=== PATIENT | female | born 1995 | race Caucasian/White ===

== ENCOUNTER 2019-03-11 17:30 | Outpatient (CLI) | payer OTHER ==
[2019-03-11 18:34] VITALS: BP 125/63; PULSE 99; RESP 16; TEMP 98.6
[2019-03-11 19:32] LABS: Basophils % (A) 0 %; Eosinophils # (A) 0.1 k/uL (0-0.7); Eosinophils % (A) 1 %; HCT 31.7 % (34.0-46.0); HGB 10.8 gm/dL (11.4-16.0); Lymphocytes # (A) 1.6 k/uL (1.0-4.8); Lymphocytes % (A) 14 %; MCHC 34.2 g/dL (31.0-37.0); MCV 90.7 fL (80.0-100.0); Mean Platelet Volume 6.7; Monocytes # (A) 0.5 k/uL (0-1.0); Monocytes % (A) 5 %; Neutrophils # (A) 8.8 k/uL (1.3-7.7); Neutrophils % (A) 78 %; Platelet Count 252 k/uL (150-450); RBC 3.49 m/uL (3.80-5.40); RDW 12.1 % (11.5-15.5); WBC 11.3 k/uL (3.8-10.6)
[2019-03-11 19:46] LABS: ALT 23 U/L (9-52); AST 25 U/L (14-36); African American GFR (CKD) >90 (>60 ml/min/1.73 sqM); Blood Urea Nitrogen 9 mg/dL (7-17); LDH 396 U/L (313-618); Uric Acid 3.1 mg/dL (3.7-7.4)
--- NOTE | 2019-03-11 19:56 | US ---
EXAMINATION TYPE: US OB >= 14 wk fetus DATE OF EXAM: 03/11/2019 COMPARISON: None CLINICAL HISTORY: cardiac arrhythmia (PACs) cardiac arrhythmia (PACs). A2. TECHNIQUE: Transabdominal (TA) GESTATIONAL AGE / DATING Physician Established: (34 weeks/2 days) EDC: 04/20/2019 Dates by LMP: Unknown Dates by First Scan: This is first scan. (33 weeks/5 days) EDC: 04/24/2019 Dates by Current Scan: (33 weeks/5 days) EDC: 04/24/2019 SURVEY IUP: Single PLACENTA: Anterior. Appears heterogeneous. Hypoechoic area seen measurin.9 x 1.8 x 1.5 cm. PREVIA: No Previa HARJIT: 15.94 cm Normal CERVICAL LENGTH (transabdominal: norm > 3.0cm): 3.49 cm BIOMETRY PRESENTATION: Vertex LIE: Longitudinal BPD: 8.48 cm 34 weeks / 1 day HC: 30.75 cm 34 weeks / 2 days AC: 29.98 cm 34 weeks / 0 days FL: 6.61 cm 34 weeks / 0 days ESTIMATED WEIGHT IN GRAMS: 2333 grams ESTIMATED WEIGHT IN LBS/OZ: 5 lbs. 2 oz. WEIGHT PERCENTAGE BASED ON ESTABLISHED DATES: 36.5% HC/AC: 1.03 Normal FL/AC: 22.05 Normal HEART RATE: 138 bpm RHYTHM: Known arrhythmia per order. IMPRESSION: heart rate is irregular. Hypoechoic area Placenta is probably a venous mei. The ultrasound gestational age is 33 weeks and 5 days. No evidenc e of IUGR.
[2019-03-11 20:15] LABS: Appearance,Urine Clear (Clear); Bacteria,Urine Occasional /hpf; Bilirubin,Urine Negative (Negative); Blood,Urine Negative (Negative); Color,Urine Light Yellow; Glucose,Urine (UA) Negative (Negative); Ketones,Urine Negative (Negative); Leukocyte Esterase,Urine Moderate (Negative); Mucus,Urine Rare /hpf; Nitrite,Urine Negative (Negative); PH, Urine 6.5 (5.0-8.0); Protein,Urine Negative (Negative); RBC,Urine <1 /hpf (0-5); Specific Gravity,Urine 1.012 (1.001-1.035); Squamous Epithelial Cell,Urine 5 /hpf (0-4); Urobilinogen,Urine <2.0 mg/dL (<2.0); WBC,Urine 25 /hpf (0-5)
--- NOTE | 2019-03-11 21:28 | P.MSEPDOC ---
Presenting Problems - Arrival Data Date of Arrival on Unit: 03/11/19 Time of Arrival on Unit: 17:50 Mode of Transport: Portable - Complaint OB-Reason for Admission/Chief Complaint: Other Comment: pt arrived c/o dizziness lightheadness and seeing spots and upper abd discomfort and not feeling well Medical History - Information : 3 Para: 0 Term: 0 : 0 Abortions: Spontaneous or Elective: 2 Number of Living Children: 0 - Gestational Age Gestational Age by ALDAIR (wks/days): 34 Weeks and 2 Days Review of Systems - Review of Systems Constitutional: No problems Breast: No problems ENT: No problems Cardiovascular: No problems Respiratory: No problems Gastrointestinal: Diarrhea Genitourinary: No problems Musculoskeletal: No problems Neurological: Dizziness Vital Signs - Temperature Temperature: 98.6 F Temperature Source: Oral - Pulse Right Brachial Pulse Rate: 99 Pulse Assessment Method: Automatic Cuff - Respirations Respiratory Rate: 16 Oxygen Delivery Method: Room Air O2 Sat by Pulse Oximetry: 98 - Blood Pressure Right Arm Blood Pressure: 125/63 Blood Pressure Mean: 83 Blood Pressure Source: Automatic Cuff Medical Screen Scoring (Pre) - Cervical Exam Dilation: Exam Deferred Effacement: Exam Deferred Membranes: Intact - Uterine Contractions Frequency: N/A Duration: N/A Intensity: N/A - Total Score - Baby A Total Score - Baby A: 0 - Total Score - Baby B Total Score - Baby B: 0 - Total Score - Baby C Total Score - Baby C: 0 - Level of Risk - Baby A Level of Risk - Baby A: Low (0-5) - Level of Risk - Baby B Level of Risk - Baby B: Low (0-5) - Level of Risk - Baby C Level of Risk - Baby C: Low (0-5) Physician Notification (Pre) - Physician Notified Physician Notified Date: 03/11/19 Physician Notified Time: 18:05 Spoke With: dr cruz - Notification Comment Comment: dr cruz in department I agree with the RN Medical Screening Exam: Yes Risk & Benefit of care provided described in d/c instruction: Yes Diagnosis: RELATED CONDITIONS, UNSPECIFIED, THIRD TRIMESTER (Pt was seen in triage for evalution of concern of elevated blood glucose and general ill feeling. Blood pressure is normal. Pre-eclampsia labs normal. FHTs however show probable PACs, otherwise Category I. Complete ultrasound is normal. At this time there is no evidence of maternal / compromise. Patient will f/u tommorow for scheduled office visit and we will arrange MFM consult and cardiac echo. )
== END 2019-03-11 20:20 | disposition home or self-care (01) ==
LOC: FBPOP 17:30
PROVIDERS: ATTEND Obstetrics & Gynecology
DX: O26.93 Pregnancy related conditions, unspecified, third trimester (principal); Z3A.34 34 weeks gestation of pregnancy
CPT/HCPCS: 59025; 76805; 81001; 82565; 82570; 83615; 84156; 84450; 84460; 84520; 84550; 85025; 99215

== ENCOUNTER 2019-04-04 13:54 | Outpatient (CLI) | payer OTHER ==
[2019-04-04 14:36] VITALS: BP 129/80; PULSE 103; RESP 18; TEMP 97.7
--- NOTE | 2019-04-08 08:23 | P.MSEPDOC ---
Presenting Problems - Arrival Data Date of Arrival on Unit: 04/04/19 Time of Arrival on Unit: 13:54 Mode of Transport: Ambulatory - Complaint OB-Reason for Admission/Chief Complaint: Rule Out SROM Medical History - Information : 3 Para: 0 Term: 0 : 0 Abortions: Spontaneous or Elective: 2 Number of Living Children: 0 - Gestational Age Gestational Age by ALDAIR (wks/days): 37 Weeks and 5 Days Review of Systems - Review of Systems Constitutional: No problems Breast: No problems ENT: No problems Cardiovascular: No problems Respiratory: No problems Gastrointestinal: No problems Genitourinary: No problems Musculoskeletal: No problems Neurological: No problems Skin: No problems Vital Signs - Temperature Temperature: 97.7 F Temperature Source: Temporal Artery Scan - Pulse Right Pulse Rate: 103 Pulse Assessment Method: Automatic Cuff - Respirations Respiratory Rate: 18 Oxygen Delivery Method: Room Air - Blood Pressure Right Arm Blood Pressure: 129/80 Blood Pressure Mean: 96 Blood Pressure Source: Automatic Cuff Medical Screen Scoring (Pre) - Cervical Exam Dilation: 1-3 cm = 1 Effacement: Exam Deferred Membranes: Intact - Uterine Contractions Frequency: N/A Duration: N/A Intensity: N/A - Maternal Vital Signs Maternal Temperature: N/A Maternal Blood Pressure: N/A Signs of Preeclampsia: N/A Maternal Respirations: N/A - Maternal Trauma Maternal Trauma: N/A - Assessment - Baby A Baseline FHR: 135 Heart Rate - NICHD Category: Category I (Normal) = 0 NST: Reactive Position: N/A Station: N/A - Total Score - Baby A Total Score - Baby A: 1 - Total Score - Baby B Total Score - Baby B: 1 - Total Score - Baby C Total Score - Baby C: 1 - Level of Risk - Baby A Level of Risk - Baby A: Low (0-5) - Level of Risk - Baby B Level of Risk - Baby B: Low (0-5) - Level of Risk - Baby C Level of Risk - Baby C: Low (0-5) Physician Notification (Pre) - Physician Notified Physician Notified Date: 04/04/19 Physician Notified Time: 14:25 New Order Received: Yes (obtain additional amnisure and cervical exam recheck in 1hr.) Medical Screen Scoring (Post) - Cervical Exam Dilation: 1-3 cm = 1 Effacement: Exam Deferred Membranes: Intact - Uterine Contractions Frequency: N/A Duration: N/A Intensity: N/A - Maternal Vital Signs Maternal Temperature: N/A Signs of Preeclampsia: N/A Maternal Respirations: N/A - Pain Assessment Pain Location and Character: Lower, Back Pain Scale Used: Numeric (1 - 10) Pain Intensity: 6 Pain Management Goal: 0 Pain Description: *Acute, Aching Pain Radiation Location: none Pain Frequency: Frequent Pain Duration Units: Minutes Pain Behavior: Vocalization Pain Aggravating Factors: Activity, Position Non-Pharmacological Interventions: Heat, Position/Reposition - Maternal Trauma Maternal Trauma: N/A - Assessment - Baby A Heart Rate: 130 Heart Rate - NICHD Category: Category I (Normal) = 0 NST: Reactive Position: N/A Station: N/A - Total Score Total Score - Baby A: 1 Total Score - Baby B: 1 Total Score - Baby C: 1 - Post Treatment Level of Risk Post Treatment Level of Risk - Baby A: Low (0-5) Post Treatment Level of Risk - Baby B: Low (0-5) Post Treatment Level of Risk - Baby C: Low (0-5) Physician Notification (Post) - Physician Notified Physician Notified Date: 04/04/19 Physician Notified Time: 15:23 Physician/Practitioner Notified:: Gómez Spoke With: Gómez New Order Received: Yes (discharge home with instructions.) Disposition - Disposition OB Disposition: Discharge to home Discharge Date: 04/04/19 Discharge Time: 15:26 I agree with the RN Medical Screening Exam: Yes Risk & Benefit of care provided described in d/c instruction: Yes Diagnosis: FALSE LABOR AT OR AFTER 37 COMPLETED WEEKS OF GESTATION
== END 2019-04-04 15:26 | disposition home or self-care (01) ==
LOC: FBPOP 13:54
PROVIDERS: ATTEND Obstetrics & Gynecology
DX: O47.1 False labor at or after 37 completed weeks of gestation (principal); Z3A.37 37 weeks gestation of pregnancy
CPT/HCPCS: 59025; 84112; G0463; 99213

== ENCOUNTER 2019-04-16 06:00 | Inpatient (IN) | payer OTHER ==
[2019-04-16] MEDS ORDERED: LIDOCAINE 0.5% (PF) 5 MG/ML (50 ML SDV) SQ PRN (06:54)
[2019-04-16] MEDS ORDERED: TERBUTALINE 1 MG/ML VIAL SQ PRN (06:54)
[2019-04-16] MEDS ORDERED: CARBOPROST TROMETHAMINE 250 MCG/ML 1 ML AMP IM PRN (06:54)
[2019-04-16] MEDS ORDERED: METHYLERGONOVINE 0.2 MG/ML 1 ML AMP IM PRN (06:54)
[2019-04-16] MEDS ORDERED: OXYTOCIN 10 UNIT/ML 1 ML VIAL IM PRN (06:54)
[2019-04-16] MEDS: LACTATED RINGERS 1,000 ML IV SCH ×3 (07:06→15:38)
[2019-04-16 07:23] LABS: Basophils # (A) 0.1 k/uL (0-0.2); Basophils % (A) 0 %; Eosinophils # (A) 0.3 k/uL (0-0.7); Eosinophils % (A) 3 %; HCT 35.1 % (34.0-46.0); HGB 11.8 gm/dL (11.4-16.0); Lymphocytes # (A) 2.1 k/uL (1.0-4.8); Lymphocytes % (A) 17 %; MCH 29.2 pg (25.0-35.0); MCHC 33.7 g/dL (31.0-37.0); MCV 86.7 fL (80.0-100.0); Mean Platelet Volume 7.2; Monocytes # (A) 0.6 k/uL (0-1.0); Monocytes % (A) 5 %; Neutrophils # (A) 9.2 k/uL (1.3-7.7); Neutrophils % (A) 74 %; Platelet Count 267 k/uL (150-450); RBC 4.04 m/uL (3.80-5.40); RDW 12.9 % (11.5-15.5); WBC 12.5 k/uL (3.8-10.6)
[2019-04-16] MEDS: OXYTOCIN 30 UNITS/500 ML NS 30 UNIT in SALINE 1 500ML.BAG IV SCH (08:00)
--- NOTE | 2019-04-16 08:44 | P.HPOB ---
History of Present Illness H&P Date: 04/16/19 Chief Complaint: Intrauterine at term: Induction of labor: Fetus with PACs Brenda is a 23-year-old at 39 weeks gestation who had an unremarkable until approximately 34 weeks when PACs were noted on her evaluation. She was sent to maternal medicine and was evaluated from their standpoint and has been closely monitored through the remainder of the . She had nonstress tests and biophysical profiles. Overall this time she is doing well and a category 1 tracing with some PACs is noted. Nursery personnel and ground intelligence officer are already aware. Pertinent labs include A+ blood type with an Rh antibody screening was negative, rubella is immune, hepatitis B surface antigen and group B strep are also negative as is HIV. She was dilated to 2-2 cm 90% effaced -2 station. Artificial rupture membranes was performed and clear fluid is noted. Past Medical History Past Medical History: No Reported History History of Any Multi-Drug Resistant Organisms: None Reported Additional Past Surgical History / Comment(s): lithotripsy, tubes in ears Past Anesthesia/Blood Transfusion Reactions: No Reported Reaction Past Psychological History: No Psychological Hx Reported Smoking Status: Former smoker Past Alcohol Use History: None Reported Past Drug Use History: None Reported - Past Family History Father Family Medical History: No Reported History Medications and Allergies Home Medications Medication Instructions Recorded Confirmed Type Pnv,Calcium 72/Iron/Folic Acid 1 each PO DAILY 03/11/19 04/16/19 History [ Plus Tablet] Allergies Allergy/AdvReac Type Severity Reaction Status Date / Time No Known Allergies Allergy Verified 04/16/19 06:53 Exam Osteopathic Statement: *. No significant issues noted on an osteopathic str uctural exam other than those noted in the History and Physical/Consult. Vital Signs Temp Pulse Resp BP Pulse Ox 04/16/19 07:11 97.6 F 94 18 128/80 99 Intake and Output 04/15/19 04/16/19 04/16/19 22:59 06:59 14:59 Other: Weight 65.317 kg 65.317 kg - OBG Physical Exam Breast: both: normal (no masses) Abdomen: bowel sounds normal, no diffuse tenderness, no bruit present, no guarding noted, no hepatomegaly, no splenomegaly, no mass Vulva: both: normal Vagina: normal moisture, no discharge Cervix: no lesion, no discharge Uterus: normal size, normal contour Adnexa: both: normal Anus/Rectum: normal perianal skin, no rectal mass, no hemorrhoids, heme negative Results Result Diagrams: 04/16/19 07:05 Abnormal Lab Results - Last 24 Hours (Table) 04/16/19 Range/Units 07:05 WBC 12.5 H (3.8-10.6) k/uL Neutrophils # 9.2 H (1.3-7.7) k/uL
[2019-04-16] MEDS ORDERED: SODIUM CHLORIDE 0.9% 100 ML BAG ONE (11:40)
[2019-04-16] MEDS ORDERED: ROPIVACAINE 5MG/ML 20ML VIAL ONE (11:40)
[2019-04-16] MEDS ORDERED: fentaNYL (PF) 50 MCG/ML 5 ML AMP ONE (11:40)
[2019-04-16] MEDS ORDERED: CITRIC ACID-SODIUM CITRATE 15 ML CUP PO ONE (21:43)
[2019-04-16] MEDS ORDERED: ONDANSETRON 4 MG/2 ML VIAL ONE (21:52)
[2019-04-16] MEDS ORDERED: ceFAZolin 1,000 MG VIAL ONE (21:52)
[2019-04-16] MEDS ORDERED: KETOROLAC 30 MG/ML 1 ML VIAL ONE (21:52)
[2019-04-16] MEDS ORDERED: DEXAMETHASONE SOD PHOS (MDV) 100 MG/10 ML VIAL ONE (21:52)
[2019-04-16] MEDS ORDERED: LACTATED RINGERS 1,000 ML BAG IV ONE (21:52)
[2019-04-16] MEDS ORDERED: MORPHINE SULFATE (PF) 0.3 MG/0.3 ML SYR ONE (21:52)
[2019-04-16] MEDS ORDERED: OXYTOCIN 10 UNIT/ML 1 ML VIAL ONE (21:52)
[2019-04-16] MEDS ORDERED: HYDROmorphone (PF) 1 MG/ML ONE (21:52)
[2019-04-16] MEDS ORDERED: ONDANSETRON 4 MG/2 ML VIAL IVP PRN (22:42)
[2019-04-16] MEDS ORDERED: ACETAMINOPHEN TAB 325 MG TAB PO PRN (22:42)
[2019-04-16] MEDS ORDERED: METOCLOPRAMIDE 5 MG/ML 2 ML VIAL IVP PRN (22:42)
[2019-04-16] MEDS ORDERED: diphenhydrAMINE 50 MG CAP PO PRN (22:42)
[2019-04-16] MEDS ORDERED: ZOLPIDEM 5 MG TAB PO PRN (22:42)
[2019-04-16] MEDS ORDERED: diphenhydrAMINE 25 MG CAP PO PRN (22:42)
[2019-04-16] MEDS ORDERED: NALOXONE 0.4 MG/ML 1 ML VIAL IV PRN (22:42)
[2019-04-16] MEDS ORDERED: SIMETHICONE 80 MG CHEWABLE PO PRN (22:42)
[2019-04-16] MEDS ORDERED: diphenhydrAMINE 50 MG/ML 1 ML VIAL IVP PRN ×2 (22:42)
--- NOTE | 2019-04-16 22:48 | P.OP ---
Date of Procedure: 04/16/19 Preoperative Diagnosis: Intrauterine at term: Failure to progress: Category 2 tracing Postoperative Diagnosis: Same with left occiput transverse position with omental adhesions along the majority of the posterior uterine wall and bilateral fallopian tubes and ovaries Procedure(s) Performed: Primary low transverse section with lysis of adhesions Anesthesia: epidural Surgeon: Geraldo Magaña [employer]: Nisreen Mann Estimated Blood Loss (ml): 500 IV fluids (ml): 600 Urine output (ml): 300 Pathology: none sent Condition: stable Disposition: floor Operative Findings: Female 's of 9 and 9 at one and 5 minutes Watkins weight was 6 lbs. 8 oz. Baby was left occiput transverse position at delivery. Significant adhesions of the omentum to the posterior uterine wall as well as bilateral fallopian tubes and ovaries Description of Procedure: Brenda was taken to the operating suite where a epidural anesthetic was found be adequate. She was prepped and draped in the normal sterile fashion and placed in dorsal supine position with leftward tilt. Initially a Pfannenstiel skin incision was made and this incision was then carried through to the underlying layer of fascia with Bovie cautery. Fascia was nicked in the midline and this opening was extended laterally with Miller scissors. Superior and inferior aspect of this incision were then grasped tented up and bluntly and sharply dissected off the rectus muscles. Rectus muscles were then divided in the midline and blunt dissection the peritoneum was made. This opening was then extended superiorly and inferiorly with good visualization of both bowel bladder. Bladder blade was then placed and bladder flap identified. It was entered with Metzenbaum scissors carried across face uterus and only dissected down. Knife was then used to incise uterus and this opening was fully developed with hemostat. Incision was then bluntly extended and head was atraumatically delivered. Anterior posterior shoulders were then delivered without difficulty followed by the remainder the baby. Umbilical cord was then clamped cut usual fashion and was sent for gases due to category 2 tracing. Once baby was delivered nursery personnel was present and assumed care. Placenta was then delivered intact and Pitocin was added to the IV. Uterus this point was attempted to be exteriorized however's omental adhesions were noted across the vast majority posterior aspect of the uterus these were sharply dissected free with Bovie cautery. Once they were dissected down enough uterus was fully exte riorized cleared of clots and debris and closed in 2 layers with 0 Vicryl suture. Once excellent hemostasis was obtained the remaining adhesions were dissected free from the posterior uterus as well as the fallopian tube and paratubal paraovarian spaces on both the right and left side. She's had no prior surgeries so it is difficult to say if this was an old infection versus endometriosis. No other endometrial implants were noted during the surgery. Once completed blood and debris was suctioned from the posterior cul-de-sac and a piece of Interceed was placed on the posterior uterine wall and uterus was reinserted into the abdomen. Reinspection of the uterine incision was done there was small hematoma in the right side was not expanding the remainder of the incision was intact and no bleeding is noted. Therefore peritoneum was identified and delineated with hemostats and closed with 3-0 Vicryl. Fascial layer was then closed with 0 Vicryl suture. One layer of 3-0 Vicryl was used to reapproximate the space in the deep subcuticular tissues. Skin was then closed with 3-0 Vicryl subcuticular. Sponge, lap, needle counts all correct 2. Patient was then taken to the recovery room in stable and satisfactory condition.
[2019-04-17] MEDS: LACTATED RINGERS 1,000 ML IV SCH ×4 (01:54→20:37)
[2019-04-17 07:05] LABS: Basophils % (A) 0 %; Eosinophils % (A) 0 %; HCT 29.1 % (34.0-46.0); Lymphocytes # (A) 0.9 k/uL (1.0-4.8); Lymphocytes % (A) 4 %; MCH 29.5 pg (25.0-35.0); MCHC 33.7 g/dL (31.0-37.0); MCV 87.4 fL (80.0-100.0); Mean Platelet Volume 9.1; Monocytes # (A) 0.5 k/uL (0-1.0); Monocytes % (A) 2 %; Neutrophils # (A) 21.9 k/uL (1.3-7.7); Neutrophils % (A) 93 %; Platelet Count 267 k/uL (150-450); RBC 3.33 m/uL (3.80-5.40); RDW 12.9 % (11.5-15.5); WBC 23.5 k/uL (3.8-10.6)
[2019-04-17 07:13] LABS: HGB 9.8 gm/dL (11.4-16.0)
[2019-04-17] MEDS: IBUPROFEN 600 MG TAB PO PRN (08:00)
[2019-04-17] MEDS: SENNOSIDES-DOCUSATE SODIUM 1 EACH TAB PO SCH ×2 (08:01→20:37)
--- NOTE | 2019-04-17 08:23 | P.PNOBGPC ---
Subjective - Subjective Principal diagnosis: Postop day 1 Interval history: Brenda is doing very well postop day 1. She is involuting, voiding and tolerating her diet. She voices no complaints. Vital signs are stable and she is afebrile. We'll plan to advance diet today and increase ambulation Patient reports: Reports appetite normal, Reports voiding normally, Reports pain well controlled, Reports ambulating normally [place]: doing well Objective - Vital Signs Latest vital signs: Vital Signs Temp Pulse Resp BP Pulse Ox 04/17/19 01:35 98.9 F 75 16 118/62 04/17/19 01:05 98.9 F 75 18 120/60 04/17/19 00:35 83 18 126/65 04/17/19 00:05 98.6 F 82 16 120/58 04/16/19 23:35 89 18 127/62 04/16/19 23:20 98.4 F 83 18 136/65 97 04/16/19 23:03 94 16 131/68 97 04/16/19 22:50 98.6 F 82 18 132/64 96 Intake and Output 04/16/19 04/17/19 04/17/19 22:59 06:59 14:59 Intake Total 150 Balance 150 Intake: Oral 150 - Exam Lungs: bilateral: normal Chest: Normal S1, Normal S2 Extremities: Present: normal Abdomen: Present: normal appearance, soft. Absent: distention, tenderness Incision: Present: normal, dry, intact Uterus: Present: normal, firm - Labs Labs: Abnormal Lab Results - Last 24 Hours (Table) 04/17/19 Range/Units 06:41 WBC 23.5 H (3.8-10.6) k/uL RBC 3.33 L (3.80-5.40) m/uL Hgb 9.8 L D (11.4-16.0) gm/dL Hct 29.1 L (34.0-46.0) % Neutrophils # 21.9 H (1.3-7.7) k/uL Lymphocytes # 0.9 L (1.0-4.8) k/uL
[2019-04-17] MEDS ORDERED: CELLULOSE,OXIDIZED 1 EACH EACH MISCELLANE ONE (11:31)
[2019-04-17] MEDS: HYDROcodone/APAP 7.5-325MG 1 EACH TAB PO PRN ×2 (12:52→22:05)
[2019-04-17] MEDS: KETOROLAC 30 MG/ML 1 ML VIAL IVP PRN ×2 (14:05→20:03)
[2019-04-17] MEDS: OXYTOCIN 30 UNITS/500 ML NS 30 UNIT in SALINE 1 500ML.BAG IV SCH (20:36)
[2019-04-18] MEDS: KETOROLAC 30 MG/ML 1 ML VIAL IVP PRN (04:02)
--- NOTE | 2019-04-18 06:24 | P.PNOBGPC ---
Subjective - Subjective Patient reports: Reports appetite normal, Reports voiding normally, Reports pain well controlled, Reports ambulating normally : doing well Objective - Vital Signs Latest vital signs: Vital Signs Temp Pulse Resp BP Pulse Ox 04/17/19 23:56 98.9 F 82 16 106/49 98 04/17/19 20:00 98.6 F 88 16 119/64 98 Intake and Output 04/17/19 04/17/19 04/18/19 14:59 22:59 06:59 Output Total 300 Balance -300 Output: Urine 300 Other: # Voids 1 - Exam Lungs: bilateral: normal Chest: Normal S1, Normal S2 Extremities: Present: normal Abdomen: Present: normal appearance, soft. Absent: distention, tenderness Incision: Present: normal, dry, intact Uterus: Present: normal, firm - Labs Labs: Abnormal Lab Results - Last 24 Hours (Table) 04/17/19 Range/Units 06:41 WBC 23.5 H (3.8-10.6) k/uL RBC 3.33 L (3.80-5.40) m/uL Hgb 9.8 L D (11.4-16.0) gm/dL Hct 29.1 L (34.0-46.0) % Neutrophils # 21.9 H (1.3-7.7) k/uL Lymphocytes # 0.9 L (1.0-4.8) k/uL Assessment and Plan Assessment: Postoperative day #2. Patient is resting without new complaints. Vital signs are stable she is afebrile, her incision is intact and dry. She did have an elevated white count yesterday to 25.5 so therefore I'm going to repeat her CBC today. Patient is no evidence of infection I feel this is most likely due to her long labor and section. Patient is tolerating regular diet and urinating without difficulty. Plan today is to continue routine postoperative care and check a CBC. (1) delivery delivered Current Visit: Yes Status: Acute Code(s): O82 - ENCOUNTER FOR DELIVERY WITHOUT INDICATION SNOMED Code(s): 722203182
[2019-04-18] MEDS: HYDROcodone/APAP 7.5-325MG 1 EACH TAB PO PRN ×3 (06:30→20:38)
[2019-04-18 07:07] LABS: Basophils % (A) 0 %; Eosinophils # (A) 0.2 k/uL (0-0.7); Eosinophils % (A) 1 %; HCT 24.8 % (34.0-46.0); Lymphocytes # (A) 1.7 k/uL (1.0-4.8); Lymphocytes % (A) 14 %; MCH 29.6 pg (25.0-35.0); MCHC 33.5 g/dL (31.0-37.0); MCV 88.2 fL (80.0-100.0); Mean Platelet Volume 8.3; Monocytes # (A) 0.6 k/uL (0-1.0); Monocytes % (A) 5 %; Neutrophils # (A) 9.7 k/uL (1.3-7.7); Neutrophils % (A) 78 %; Platelet Count 214 k/uL (150-450); RBC 2.81 m/uL (3.80-5.40); RDW 13.4 % (11.5-15.5); WBC 12.4 k/uL (3.8-10.6)
[2019-04-18 07:16] LABS: HGB 8.3 gm/dL (11.4-16.0)
[2019-04-18] MEDS: IBUPROFEN 600 MG TAB PO PRN ×3 (10:41→23:32)
[2019-04-18] MEDS: SENNOSIDES-DOCUSATE SODIUM 1 EACH TAB PO SCH ×3 (10:42→19:38)
[2019-04-19] MEDS: HYDROcodone/APAP 7.5-325MG 1 EACH TAB PO PRN ×2 (02:31→08:23)
[2019-04-19] MEDS: IBUPROFEN 600 MG TAB PO PRN (05:27)
--- NOTE | 2019-04-19 07:08 | P.PNOBGPC ---
Subjective - Subjective Patient reports: Reports appetite normal, Reports voiding normally, Reports pain well controlled, Reports ambulating normally : doing well Objective - Vital Signs Latest vital signs: Vital Signs Temp Pulse Resp BP Pulse Ox 04/18/19 23:55 98.1 F 87 16 127/76 97 - Exam Lungs: bilateral: normal Chest: Normal S1, Normal S2 Extremities: Present: normal Abdomen: Present: normal appearance, soft. Absent: distention, tenderness Incision: Present: normal, dry, intact Uterus: Present: normal, firm - Labs Labs: Abnormal Lab Results - Last 24 Hours (Table) 04/18/19 Range/Units 06:40 WBC 12.4 H (3.8-10.6) k/uL RBC 2.81 L (3.80-5.40) m/uL Hgb 8.3 L D (11.4-16.0) gm/dL Hct 24.8 L (34.0-46.0) % Neutrophils # 9.7 H (1.3-7.7) k/uL Assessment and Plan Assessment: Postoperative day #3. This patient is resting without new complaints. Vital signs are stable and she is afebrile. Uterus is firm nontender and her incision is intact and dry. CBC yesterday showed her white count come down markedly there is no evidence of infection. Plan today is to continue routine postoperative care discharge home later today. (1) delivery delivered Current Visit: Yes Status: Acute Code(s): O82 - ENCOUNTER FOR DELIVERY WITHOUT INDICATION SNOMED Code(s): 485154390
--- NOTE | 2019-04-19 07:15 | P.DS ---
Providers Date of admission: 04/16/19 06:30 Expected date of discharge: 04/19/19 Attending physician: Geraldo Magaña Primary care physician: Stated None - Discharge Diagnosis(es) (1) delivery delivered Current Visit: Yes Status: Acute Hospital Course: Please see dictated H&P for intimate details by Dr. Magaña on this patient's admission. Brief summary this is a pleasant 23-year-old 3 para 0 female 39-1/2 weeks gestation who is admitted to labor and delivery for induction of labor subsequent goes on to have a primary section for a viable female infant. Please see dictated delivery/operative note. Postoperatively the patient did have an elevated white count postoperative day 1 but a repeat CBC showed this went down to normal. There is no evidence of infection. Patient continues to well was felt be stable for discharge home on postoperative [address] Magaña in 1 week. Procedures: Induction of labor and primary low transverse section Patient Condition at Discharge: Good Plan - Discharge Summary New Discharge Prescriptions: New Ibuprofen [Motrin] 600 mg PO Q6HR PRN #30 tab PRN Reason: Mild Pain Or Fever >= 100.5 HYDROcodone/APAP 7.5-325MG [[place] 7.5-325] 1 each PO Q6H PRN #12 tab PRN Reason: Severe Pain No Action Pnv,Calcium 72/Iron/Folic Acid [ Plus Tablet] 1 each PO DAILY Discharge Medication List Pnv,Calcium 72/Iron/Folic Acid [ Plus Tablet] 1 each PO DAILY 03/11/19 [History] HYDROcodone/APAP 7.5-325MG [[place] 7.5-325] 1 each PO Q6H PRN #12 tab 04/19/19 [Rx] Ibuprofen [Motrin] 600 mg PO Q6HR PRN #30 tab 04/19/19 [Rx] Follow up Appointment(s)/Referral(s): Geraldo Magaña, [Doctor of Osteopathic Medicine] - 04/27/19 2:30 pm (Please see Dr. Magaña on May 29 at 2:15 PM for a check as well.) Patient Instructions/Handouts: (DC) Activity/Diet/Wound Care/Special Instructions: No heavy lifting or strenuous activities for 6 weeks[address] No driving. No intercourse or anything per vagina for 6 weeks. Please call if any fever, chills, excessive vaginal bleeding, and/or abdominal pain. Discharge Disposition: HOME SELF-CARE
[2019-04-19] MEDS: SENNOSIDES-DOCUSATE SODIUM 1 EACH TAB PO SCH (08:23)
[2019-04-19 08:37] VITALS: BP 111/74; PULSE 80; RESP 18; TEMP 98.3
== END 2019-04-19 10:50 | disposition home or self-care (01) | DRG 788 ==
LOC: 4FBP 06:30
PROVIDERS: ADMIT Obstetrics & Gynecology; ATTEND Obstetrics & Gynecology
PROC: 0DNV0ZZ Release Mesentery, Open Approach (ICD-10-PCS; 2019-04-16)
PROC: 3E033VJ Introduction of Other Hormone into Peripheral Vein, Percutaneous Approach (ICD-10-PCS; 2019-04-16)
PROC: 10907ZC Drainage of Amniotic Fluid, Therapeutic from Products of Conception, Via Natural or Artificial Opening (ICD-10-PCS; 2019-04-16)
PROC: 00HU33Z Insertion of Infusion Device into Spinal Canal, Percutaneous Approach (ICD-10-PCS; 2019-04-16)
PROC: 3E0R3BZ Introduction of Anesthetic Agent into Spinal Canal, Percutaneous Approach (ICD-10-PCS; 2019-04-16)
PROC: 10D00Z1 Extraction of Products of Conception, Low, Open Approach (ICD-10-PCS; principal; 2019-04-16 21:50)
DX: O76 Abnormality in fetal heart rate and rhythm complicating labor and delivery (principal); O99.89 Other specified diseases and conditions complicating pregnancy, childbirth and the puerperium; N73.6 Female pelvic peritoneal adhesions (postinfective); O62.2 Other uterine inertia; Z37.0 Single live birth; Z3A.39 39 weeks gestation of pregnancy; Z87.891 Personal history of nicotine dependence; Z79.899 Other long term (current) drug therapy; Z98.890 Other specified postprocedural states
CPT/HCPCS: 85025; 86850; 86900; 86901

== ENCOUNTER → 2020-04-19 | Outpatient (CLI) | payer OTHER ==
--- NOTE | 2020-04-19 16:00 | US ---
EXAMINATION TYPE: US OB anatomy transabd DATE OF EXAM: 04/19/2020 COMPARISON: NONE HISTORY: Z34.92 Encounter for supervision of normal pregnan Anatomy TECHNIQUE: Transabdominal (TA) EXAM MEASUREMENTS: GESTATIONAL AGE / DATING Physician Established: (19 weeks/1 days) EDC: 09/12/2020 Dates by Current Scan for: (18 weeks/4 days) EDC: 09/16/2020 SURVEY IUP: Single PLACENTA: Posterior PREVIA: No previa HARJIT: 10.0 cm Normal CERVICAL LENGTH (transabdominal: norm > 3.0cm): 3.3 cm BIOMETRY PRESENTATION: Vertex BPD: 4.2 cm 18 weeks / 5 days HC: 15.9 cm 18 weeks / 5 days AC: 13.3 cm 18 weeks / 5 days FL: 2.9 cm 18 weeks / 5 days ESTIMATED WEIGHT IN GRAMS: 256.4 grams ESTIMATED WEIGHT IN LBS/OZ: 0 lbs. 9 oz. WEIGHT PERCENTAGE BASED ON ESTABLISHED DATE: 25% % HC/AC: 1.2 Normal FL/AC: 21.5 HEART RATE: 150 bpm RHYTHM: Normal ANATOMY SEEN (within normal limits): * Lateral Vent (< 1 cm) 0.4 cm * Cisterna Magna (< 1.1 cm) 0.4 cm * Nuchal Fold (< 0.6 cm) 0.3 cm * Cerebellum (varies with age) 1.9 cm Choroid Plexus (bilateral) Midline Falx Cavus Septi Pellucidi Four Chamber Heart Outflow tracts: LVOT/RVOT Stomach Situs Nose / Lips Diaphragm Kidneys (bilateral) Bladder Cord Insert Three Vessel Cord Longitudinal Spine Transverse Spine Arms (bilateral) Legs (bilateral) Feet (bilateral) Hands (bilateral) Single live IUP measuring 18 weeks 4 days. IMPRESSION: 1. Single intrauterine gestation estimated at 18 weeks 4 days gestation based on current ultrasound m easurements. Cardiac activity measures 1 50 bpm was observed during the study.
== END | disposition home or self-care (01) ==
LOC: RADUSWWP 12:07
PROVIDERS: ATTEND Obstetrics & Gynecology
DX: Z34.92 Encounter for supervision of normal pregnancy, unspecified, second trimester (principal); Z3A.18 18 weeks gestation of pregnancy
CPT/HCPCS: 76811

== ENCOUNTER 2020-07-14 10:40 | Outpatient (CLI) | payer OTHER ==
[2020-07-14 11:42] VITALS: BP 137/75; PULSE 80; RESP 16; TEMP 97.7
--- NOTE | 2020-07-16 08:17 | P.MSEPDOC ---
Presenting Problems - Arrival Data Date of Arrival on Unit: 07/14/20 Time of Arrival on Unit: 10:40 Mode of Transport: Ambulatory - Complaint OB-Reason for Admission/Chief Complaint: Possible Onset of Labor Comment: contractions from 299 to 429 Medical History - Information : 4 Para: 1 Term: 1 : 0 Abortions: Spontaneous or Elective: 2 Number of Living Children: 1 - Gestational Age Gestational Age by ALDAIR (wks/days): 31 Weeks and 3 Days - History Complications: Prior Review of Systems - Review of Systems Constitutional: No problems Breast: No problems ENT: No problems Cardiovascular: No problems Respiratory: No problems Gastrointestinal: No problems Genitourinary: No problems Musculoskeletal: No problems Neurological: No problems Skin: No problems Vital Signs - Temperature Temperature: 97.7 F Temperature Source: Temporal Artery Scan - Pulse Right Brachial Pulse Rate: 80 Pulse Assessment Method: Automatic Cuff - Respirations Respiratory Rate: 16 Oxygen Delivery Method: Room Air O2 Sat by Pulse Oximetry: 98 - Blood Pressure Right Arm Sitting Blood Pressure: 137/75 Blood Pressure Mean: 95 Blood Pressure Source: Automatic Cuff Medical Screen Scoring (Pre) - Cervical Exam Dilation: 0 cm = 0 Membranes: Intact - Uterine Contractions Frequency: > 5 minutes apart = 1 Duration: > 40 seconds = 2 - Maternal Vital Signs Maternal Temperature: N/A Maternal Blood Pressure: N/A Signs of Preeclampsia: N/A Maternal Respirations: N/A - Maternal Trauma Maternal Trauma: N/A - Assessment - Baby A Baseline FHR: 130 Heart Rate - NICHD Category: Category I (Normal) = 0 NST: Reactive Position: N/A Station: N/A - Total Score - Baby A Total Score - Baby A: 3 - Total Score - Baby B Total Score - Baby B: 3 - Total Score - Baby C Total Score - Baby C: 3 - Level of Risk - Baby A Level of Risk - Baby A: Low (0-5) - Level of Risk - Baby B Level of Risk - Baby B: Low (0-5) - Level of Risk - Baby C Level of Risk - Baby C: Low (0-5) Physician Notification (Pre) - Physician Notified Physician Notified Date: 07/14/20 Physician Notified Time: 11:15 New Order Received: Yes (dc home) Disposition - Disposition OB Disposition: Triage, Discharge to home, Written follow up instructions reviewed Discharge Date: 07/14/20 Discharge Time: 11:20 I agree with the RN Medical Screening Exam: Yes Case reviewed; plan agreed upon as documented in EMR&OBIX.: Yes Diagnosis: FALSE LABOR BEFORE 37 COMPLETED WEEKS OF GEST, THIRD TRI
== END 2020-07-14 11:20 | disposition home or self-care (01) ==
LOC: FBPOP 10:40
PROVIDERS: ATTEND Obstetrics & Gynecology
DX: O47.03 False labor before 37 completed weeks of gestation, third trimester (principal); Z3A.31 31 weeks gestation of pregnancy
CPT/HCPCS: 59025; G0463; 99213

== ENCOUNTER 2020-09-09 05:48 | Inpatient (IN) | payer OTHER ==
[2020-09-07 14:26] VITALS: BMI 25.7
--- NOTE | 2020-09-08 12:48 | P.HPOB ---
History of Present Illness H&P Date: 09/08/20 Chief Complaint: Repeat and permanent sterilization This patient is a pleasant 25-year-old 4 para 1 female estimated date of confinement 09/12/2020 estimated gestational age 39-4/7 weeks who presents to labor and delivery requesting repeat section and also requesting tubal ligation for permanent sterilization. Patient's history is such that she had a previous section for failure to progress and request repeat . Patient is also talk to me on multiple occasions throughout her that she is done having shoulder and wants something permanent done. Therefore she presents for tubal ligation as well. has been uncomplicated. Review of Systems Genitourinary: Reports Menstruation: Reports amenorrhea Past Medical History Past Medical History: No Reported History History of Any Multi-Drug Resistant Organisms: None Reported Past Surgical History: Section, Ear Surgery Additional Past Surgical History / Comment(s): lithotripsy, tubes in ears Past Anesthesia/Blood Transfusion Reactions: No Reported Reaction Smoking Status: Former smoker Past Alcohol Use History: None Reported Past Drug Use History: None Reported - Past Family History Father Family Medical History: No Reported History Medications and Allergies Home Medications Medication Instructions Recorded Confirmed Type Pnv,Calcium 72/Iron/Folic Acid 1 each PO DAILY 03/11/19 09/07/20 History [ Plus Tablet] Allergies Allergy/AdvReac Type Severity Reaction Status Date / Time No Known Allergies Allergy Verified 09/07/20 14:22 Exam - OBG Physical Exam Abdomen: bowel sounds normal, no diffuse tenderness, no bruit present, no guarding noted, no hepatomegaly, no splenomegaly, no mass Vulva: both: normal Vagina: normal moisture, no discharge Cervix: no lesion, no discharge Uterus: enlarged (Fundal height is 37 cm) Results blood work shows she is A positive, rubella immune, RPR is nonreactive, hepatitis B is negative, Glucola was normal, group B strep was negative, growth ultrasounds anatomy ultrasounds were normal. Assessment and Plan Assessment: This is a pleasant 25-year-old 4 para 1 female 39-4/7 weeks gestation who is admitted to labor and delivery for requested repeat section and also requesting permanent sterilization. Plan is repeat low transverse section and bilateral partial salpingectomy. I have had multiple discussions with Brenda in regards to the fact that a tubal ligation is considered permanent, however there is a failure rate of less than 5 per thousand procedures done. She understands that surgery itself and apparently has risks including risks of infection, bleeding, possible injury to bowel, bladder, vessels, and/or other organs. All the patient's questions are answered written consent is obtained (1) 39 weeks gestation of Status: Acute Code(s): Z3A.39 - 39 WEEKS GESTATION OF SNOMED Code(s): 57206437 (2) Previous delivery affecting Status: Acute Code(s): O34.219 - MATERNAL CARE FOR UNSP TYPE SCAR FROM PREVIOUS DEL SNOMED Code(s): 306454498 (3) Family planning Status: Acute Code(s): Z30.09 - ENCOUNTER FOR OTH GENERAL CNSL AND ADVICE ON CONTRACEPTION SNOMED Code(s): 736054660
[2020-09-09] MEDS ORDERED: CITRIC ACID-SODIUM CITRATE 15 ML CUP PO ONE (06:07)
[2020-09-09] MEDS ORDERED: LACTATED RINGERS 1,000 ML IV ONE (06:07)
[2020-09-09] MEDS: LACTATED RINGERS 1,000 ML IV SCH ×2 (06:20→19:57)
[2020-09-09 06:31] LABS: Basophils % (A) 0 %; Eosinophils # (A) 0.2 k/uL (0-0.7); Eosinophils % (A) 2 %; HCT 32.7 % (34.0-46.0); HGB 11.4 gm/dL (11.4-16.0); Lymphocytes # (A) 2.4 k/uL (1.0-4.8); Lymphocytes % (A) 23 %; MCH 30.1 pg (25.0-35.0); MCHC 34.8 g/dL (31.0-37.0); MCV 86.5 fL (80.0-100.0); Mean Platelet Volume 9.4; Monocytes # (A) 0.5 k/uL (0-1.0); Monocytes % (A) 5 %; Neutrophils % (A) 69 %; Platelet Count 234 k/uL (150-450); RBC 3.78 m/uL (3.80-5.40); RDW 13.1 % (11.5-15.5); WBC 10.2 k/uL (3.8-10.6)
[2020-09-09] MEDS ORDERED: ONDANSETRON 4 MG/2 ML VIAL ONE (07:56)
[2020-09-09] MEDS ORDERED: KETOROLAC 15 MG/ML 1 ML VIAL ONE (07:56)
[2020-09-09] MEDS ORDERED: OXYTOCIN 10 UNIT/ML 1 ML VIAL ONE (07:56)
[2020-09-09] MEDS ORDERED: NALBUPHINE 10 MG/ML (1 ML AMP) ONE (07:56)
[2020-09-09] MEDS ORDERED: MORPHINE SULFATE (PF) 0.3 MG/0.3 ML SYR ONE (07:56)
[2020-09-09] MEDS ORDERED: NALOXONE 0.4 MG/ML 1 ML VIAL IV PRN (08:22)
[2020-09-09] MEDS ORDERED: diphenhydrAMINE 50 MG/ML 1 ML VIAL IVP PRN ×2 (08:22→08:48)
[2020-09-09] MEDS ORDERED: MORPHINE SULFATE 2 MG/ML SYRINGE IVP PRN (08:22)
[2020-09-09] MEDS ORDERED: ONDANSETRON 4 MG/2 ML VIAL IVP PRN (08:22)
[2020-09-09] MEDS ORDERED: SIMETHICONE 80 MG CHEWABLE PO PRN (08:48)
[2020-09-09] MEDS ORDERED: diphenhydrAMINE 25 MG CAP PO PRN (08:48)
[2020-09-09] MEDS ORDERED: METOCLOPRAMIDE 5 MG/ML 2 ML VIAL IVP PRN (08:48)
[2020-09-09] MEDS ORDERED: LANOLIN CREAM 5 GM TUBE TOPICAL PRN (08:48)
[2020-09-09] MEDS ORDERED: ZOLPIDEM 5 MG TAB PO PRN (08:48)
[2020-09-09] MEDS ORDERED: OXYTOCIN 30 UNITS/500 ML NS 30 UNIT in SALINE 1 500ML.BAG IV SCH (09:00)
--- NOTE | 2020-09-09 09:00 | P.OP ---
Date of Procedure: 09/09/20 Preoperative Diagnosis: #1: 39-4/7 weeks intrauterine . #2: Previous section desires repeat. #3: Multi parity desires permanent sterilization Postoperative Diagnosis: Same Procedure(s) Performed: Repeat low transverse section and bilateral partial salpingectomy. Anesthesia: spinal Surgeon: Booker Watt Account Group Supervisor #1: Geraldo Magaña Estimated Blood Loss (ml): 600 Pathology: other (Bilateral fallopian tube segments) Condition: stable Disposition: floor Indications for Procedure: Please see dictated H&P for intimate details of this patient's admission. Brief summary this is a pleasant 25-year-old 4 para 1 female estimated gestational age 39-4/7 weeks who presents for elective repeat section and also requesting permanent sterilization. Patient and I have discussed the fact that a tubal ligation is permanent however there is a failure rate of less than 5 per thousand procedures done. Patient also understands surgery itself has risks and risks of infection, bleeding, possible injury bowel, bladder, vessels, and/or other organs. All the patient's questions are answered written consent is obtained. Operative Findings: This is a vigorous viable female Apgars 9 and 9 delivery time is 0815 hrs. Infant appeared grossly normal. Uterus tubes and ovaries appear normal as well Description of Procedure: This patient has a Mccurdy catheter placed to straight drain. Patient subsequently taken to the operating room where she sat up and spinal anesthetic is administered without incident. With an adequate level of anesthesia she has abdominal prep and drape. Scalpels then taken the previous Pfannenstiel incision is excised. Second scalpel is taken down the fascia and the fascia scored with a knife. Fascial incision extended bilaterally using the Miller scissors. Fascia is then dissected sharply off the rectus muscles. Rectus muscles are and the peritoneum identified and entered sharply. Peritoneal incision extended superior and inferior without difficulty. Bladder blade is then placed. Bladder peritoneum was taken sharply off the lower uterine segment. Scalpels then taken a low transverse uterine incision is then made. Using a hemostat, I gently into the uterine cavity and there is loss of clear fluid. Uterine incision is then extended bluntly. 's head is then guided through the incision with gentle fundal pressure is delivered. Mouth and nares are bulb suctioned. There is no evidence of a nuchal cord. Again with gentle fundal pressure deliver the anterior and posterior shoulder and rest this 's body. This is a vigorous viable female infant Apgars are 9 and 9 delivery time was 0815 hrs. After delivery of the infant the umbilical cords doubly clamped and cut appears to be trivascular. The infant is handed off to the nurses in attendance. Placenta is then manually extracted intact. Uterus is then externalized and uterine incision demarcated with Sandoval clamps. Uterine cavity is explored and all debris is removed. Uterine incision is then closed in 0 Vicryl running locked fashion 2 layers. Excellent hemostasis is noted. The bladder is felt to be advanced enough up on the lower uterine segment that this is not reapproximated. I then turned my attention left fallopian tube approximately 4 cm from the cornual insertion a small window is made to the mesial salpinx with Bovie cautery. Using a 2-0 silk I doubly ligate a 2 cm segment of the tube and this is excised and handed off to pathology. Cauterization is done of the tubal ends. Excellent hemostasis is noted. Turned my attention of the right fallopian tube, using a similar technique a segment of the right fallopian tube is excised. With this done excess fluid is removed from the abdomen and pelvis. Uterus placed back into the abdomen. Final inspection of the uterine incision and the tubal ends show to be excellent hemostasis. Parietal peritoneum was then identified and closed in 0 Vicryl running fashion. Rectus muscles reapproximated in 0 Vicryl interrupted fashion. Fascial incision is then closed using 0 PDS in a running fashion. Fascial incision is intact and hemostatic. Subcutaneous tissues and closed using a 3-0 Vicryl. Skin is and closed using cristian. Sterile dressing then applied. All counts are correct 3. There are no complications. Infant and mother are taken to the birthing suite in satisfactory condition.
[2020-09-09] MEDS: KETOROLAC 15 MG/ML 1 ML VIAL IVP PRN ×2 (14:40→20:11)
[2020-09-09] MEDS: SENNOSIDES-DOCUSATE SODIUM 1 EACH TAB PO SCH (20:50)
[2020-09-10] MEDS: KETOROLAC 15 MG/ML 1 ML VIAL IVP PRN (02:52)
[2020-09-10] MEDS: ACETAMINOPHEN TAB 500 MG TAB PO PRN ×4 (06:17→23:23)
[2020-09-10 06:31] LABS: Basophils % (A) 0 %; Eosinophils # (A) 0.1 k/uL (0-0.7); Eosinophils % (A) 1 %; HCT 31.2 % (34.0-46.0); HGB 10.6 gm/dL (11.4-16.0); Lymphocytes % (A) 16 %; MCH 30.1 pg (25.0-35.0); MCHC 34.1 g/dL (31.0-37.0); MCV 88.4 fL (80.0-100.0); Monocytes # (A) 0.5 k/uL (0-1.0); Monocytes % (A) 4 %; Neutrophils # (A) 9.6 k/uL (1.3-7.7); Neutrophils % (A) 78 %; Platelet Count 203 k/uL (150-450); RBC 3.53 m/uL (3.80-5.40); RDW 13.1 % (11.5-15.5); WBC 12.4 k/uL (3.8-10.6)
[2020-09-10] MEDS: SENNOSIDES-DOCUSATE SODIUM 1 EACH TAB PO SCH ×2 (08:20→19:57)
[2020-09-10] MEDS: IBUPROFEN 600 MG TAB PO PRN ×3 (08:28→21:46)
--- NOTE | 2020-09-10 10:52 | P.PNOBGPC ---
Subjective - Subjective Principal diagnosis: Post Op day 1 Interval history: Brenda is doing very well postop day 1. She is ambulating, voiding and she is tolerating her diet. She voices no complaints. Vital signs are stable and afebrile. Incision is clean dry and intact Patient reports: Reports appetite normal, Reports voiding normally, Reports pain well controlled, Reports ambulating normally [place]: doing well Objective - Vital Signs Latest vital signs: Vital Signs Temp Pulse Resp BP Pulse Ox 09/10/20 09:52 16 98 09/10/20 08:00 98.0 F 65 17 109/69 97 09/10/20 06:00 17 09/10/20 02:58 98.1 F 70 18 136/68 97 09/10/20 01:26 18 09/09/20 23:25 97.8 F 77 18 110/70 98 09/09/20 22:00 18 09/09/20 20:00 98.1 F 80 18 125/76 99 09/09/20 16:00 97.8 F 66 16 115/72 99 09/09/20 14:00 16 100 Intake and Output 09/09/20 09/10/20 09/10/20 22:59 06:59 14:59 Output Total 150 Balance -150 Output: Urine 150 Other: # Voids 1 1 1 - Exam Lungs: bilateral: normal Chest: Normal S1, Normal S2 Extremities: Present: normal Abdomen: Present: normal appearance, soft. Absent: distention, tenderness Incision: Present: normal, dry, intact Uterus: Present: normal, firm - Labs Labs: Abnormal Lab Results - Last 24 Hours (Table) 09/10/20 Range/Units 06:17 WBC 12.4 H (3.8-10.6) k/uL RBC 3.53 L (3.80-5.40) m/uL Hgb 10.6 L (11.4-16.0) gm/dL Hct 31.2 L (34.0-46.0) % Neutrophils # 9.6 H (1.3-7.7) k/uL
--- NOTE | 2020-09-10 17:14 | P.PN ---
Progress Note - Text Progress Note Date: 09/10/20 Postoperative day 1 status post section under spinal anesthesia, and i ntrathecal morphine given for postoperative analgesia, patient doing well, there is no anesthesia related complications Patient had no headache, vital signs stable Assessment and plan = postop day 1 status post , doing well there is no anesthesia related complication
[2020-09-10 20:43] VITALS: PULSE 75
[2020-09-11] MEDS: IBUPROFEN 600 MG TAB PO PRN (04:00)
[2020-09-11] MEDS: ACETAMINOPHEN TAB 500 MG TAB PO PRN (05:58)
[2020-09-11 09:16] VITALS: BP 135/78; RESP 18; TEMP 97.9
[2020-09-11] MEDS: SENNOSIDES-DOCUSATE SODIUM 1 EACH TAB PO SCH (09:17)
--- NOTE | 2020-09-11 10:16 | P.DS ---
Providers Date of admission: 09/09/20 05:48 Expected date of discharge: 09/11/20 Attending physician: Booker Watt Primary care physician: Stated None Hospital Course: Brenda is doing very well postop day 2. She is ambulating, voiding and tolerating her diet. She voices no Patient Condition at Discharge: Good Plan - Discharge Summary Discharge Rx Participant: Yes New Discharge Prescriptions: New Ibuprofen [Motrin] 600 mg PO Q6H PRN #30 tab PRN Reason: Pain oxyCODONE HCL [OxyIR] 5 mg PO Q4HR PRN #18 tab PRN Reason: Pain No Action Pnv,Calcium 72/Iron/Folic Acid [ Plus Tablet] 1 each PO DAILY Discharge Medication List Pnv,Calcium 72/Iron/Folic Acid [ Plus Tablet] 1 each PO DAILY 03/11/19 [History] Ibuprofen [Motrin] 600 mg PO Q6H PRN #30 tab 09/09/20 [Rx] oxyCODONE HCL [OxyIR] 5 mg PO Q4HR PRN #18 tab 09/09/20 [Rx] Follow up Appointment(s)/Referral(s): Booker Watt MD [STAFF PHYSICIAN] - 09/19/20 8:45 am (Patient also has a visit on October 18 at 2:45 PM) Patient Instructions/Handouts: (DC) Activity/Diet/Wound Care/Special Instructions: No heavy lifting or strenuous activity for 6 weeks. No intercourse or anything per vagina for 6 weeks. Please call if any fever, chills, excessive vaginal bleeding, and/or abdominal pain. Discharge Disposition: HOME SELF-CARE
== END 2020-09-11 11:39 | disposition home or self-care (01) | DRG 785 ==
LOC: 4FBP 05:48
PROVIDERS: ADMIT Obstetrics & Gynecology; ATTEND Obstetrics & Gynecology
PROC: 10D00Z1 Extraction of Products of Conception, Low, Open Approach (ICD-10-PCS; principal; 2020-09-09 08:00)
PROC: 0UB70ZZ Excision of Bilateral Fallopian Tubes, Open Approach (ICD-10-PCS; principal; 2020-09-09 08:00)
DX: O34.211 Maternal care for low transverse scar from previous cesarean delivery (principal); N85.8 Other specified noninflammatory disorders of uterus; J45.909 Unspecified asthma, uncomplicated; O99.52 Diseases of the respiratory system complicating childbirth; O99.62 Diseases of the digestive system complicating childbirth; K21.9 Gastro-esophageal reflux disease without esophagitis; Z30.2 Encounter for sterilization; Z37.0 Single live birth; Z3A.39 39 weeks gestation of pregnancy; Z79.899 Other long term (current) drug therapy; Z87.891 Personal history of nicotine dependence; Z86.69 Personal history of other diseases of the nervous system and sense organs; Z87.448 Personal history of other diseases of urinary system; Z98.890 Other specified postprocedural states
CPT/HCPCS: 85025; 86850; 86900; 86901; 88302

== ENCOUNTER 2020-12-10 17:28 | Emergency (ER) | payer OTHER ==
[2020-12-10 17:31] VITALS: BP 123/79; PULSE 64; RESP 18; TEMP 98.4
--- NOTE | 2020-12-10 17:49 | ED ---
ENT HPI - General Chief complaint: Dental/Oral Stated complaint: Mouth pain Time Seen by Provider: 12/10/20 17:36 Source: patient Mode of arrival: ambulatory Limitations: no limitations - History of Present Illness Initial comments: 25-year-old female presents emergency Department with chief complaint abdominal pain. States the symptoms are ongoing for the past several days. States most the pain is located in the right lower region of the jaw. States she has impacted wisdom teeth and they hurt quite a bit. States she has an appointment with his dentist on Saturday but cannot tolerate the pain. Denies any facial swelling fevers or chills. - Related Data Home Medications Medication Instructions Recorded Confirmed Pnv,Calcium 72/Iron/Folic Acid 1 each PO DAILY 03/11/19 09/09/20 [ Plus Tablet] Previous Rx's Medication Instructions Recorded Ibuprofen [Motrin] 600 mg PO Q6H PRN #30 tab 09/09/20 oxyCODONE HCL [OxyIR] 5 mg PO Q4HR PRN #18 tab 09/09/20 Amoxicillin/Potassium Clav 1 tab PO Q12HR #20 tab 12/10/20 [Augmentin 875-125 Tablet] Allergies Allergy/AdvReac Type Severity Reaction Status Date / Time No Known Allergies Allergy Verified 12/10/20 17:32 Review of Systems ROS Statement: Those systems with pertinent positive or pertinent negative responses have been documented in the HPI. ROS Other: All systems not noted in ROS Statement are negative. Past Medical History Past Medical History: No Reported History History of Any Multi-Drug Resistant Organisms: None Reported Past Surgical History: Section, Ear Surgery Additional Past Surgical History / Comment(s): lithotripsy, tubes in ears Past Anesthesia/Blood Transfusion Reactions: No Reported Reaction Past Psychological History: No Psychological Hx Reported Smoking Status: Former smoker Past Alcohol Use History: None Reported Past Drug Use History: None Reported - Past Family History Father Family Medical History: No Reported History General Exam Limitations: no limitations General appearance: alert, in no apparent distress Head exam: Present: atraumatic, normocephalic, normal inspection Eye exam: Present: normal appearance, PERRL, EOMI Pupils: Present: normal accommodation ENT exam: Present: normal exam, normal oropharynx (No signs of periapical abscess.), mucous membranes moist, TM's normal bilaterally, normal external ear exam Neck exam: Present: normal inspection, full ROM. Absent: tenderness, lymphadenopathy Respiratory exam: Present: normal lung sounds bilaterally. Absent: respiratory distress Cardiovascular Exam: Present: regular rate, normal rhythm, normal heart sounds Extremities exam: Present: normal inspection, full ROM Back exam: Present: normal inspection, full ROM Neurological exam: Present: alert, oriented X3 Psychiatric exam: Present: normal affect, normal mood Skin exam: Present: warm, dry, intact, normal color Course Vital Signs 12/10/20 17:29 Temperature 98.4 F Pulse Rate 64 Respiratory 18 Rate Blood Pressure 123/79 O2 Sat by Pulse 98 Oximetry Medical Decision Making - Medical Decision Making 25-year-old female presents to emergency Department with a chief complaint abdominal pain. Physical examination, she has tenderness at tooth #26. No signs of an abscess. I will start the patient on Augmentin. We'll discharged with Tylenol 3 starter pack. We'll also give Toradol here. She is not . She has an appointment on Saturday with dentist. Return parameters discussed the patient is an attending agreeable. Case discussed with physician. Disposition Clinical Impression: Toothache Disposition: HOME SELF-CARE Condition: Stable Instructions (If sedation given, give patient instructions): Toothache (ED) Additional Instructions: Please return to the Emergency Department if symptoms worsen or any other concerns. Prescriptions: Amoxicillin/Potassium Clav [Augmentin 875-125 Tablet] 1 tab PO Q12HR #20 tab Is patient prescribed a controlled substance at d/c from ED?: No Referrals: Verito Saldaña MD [Primary Care Provider] - 1-2 days Time of Disposition: 17:49
[2020-12-10] MEDS: AMOXIC-POT CLAV 875-125MG 1 EACH TAB PO STA (18:04)
[2020-12-10] MEDS: KETOROLAC 15 MG/ML 1 ML VIAL IM STA (18:06)
[2020-12-10] MEDS: ACET/COD 300 MG/30 MG STARTER PACK 6 TAB BTL PO STA (18:10)
== END 2020-12-10 18:10 | disposition home or self-care (01) ==
LOC: EC 17:28
DX: K08.89 Other specified disorders of teeth and supporting structures (principal); R10.9 Unspecified abdominal pain; Z87.891 Personal history of nicotine dependence; Z79.1 Long term (current) use of non-steroidal anti-inflammatories (NSAID)
CPT/HCPCS: 96372; 99283

== ENCOUNTER → 2023-07-04 | Outpatient (CLI) | payer OTHER ==
--- NOTE | 2023-07-05 12:53 | US ---
EXAMINATION TYPE: US pelvis complete transvag DATE OF EXAM: 07/04/2023 COMPARISON: NONE CLINICAL INDICATION: Female, 28 years old with history of N93.9 ABNORMAL UTERINE AND VAGINAL BLEEDING , UNSPE; Pain bilateral, irreg bleeding. BTL. No other surgeries TECHNIQUE: Transvaginal (TV) and Transabdominal (TA) . Transabdominal sonographic images of the pel vis were acquired. Transvaginal sonographic images were medically necessary to better assess the fol lowing anatomy: Date of LMP: 06/24/2023 EXAM MEASUREMENTS: Uterus: 9.6 x 4.3 x 5.9 cm Endometrial Stripe: 0.7 cm Right Ovary: 4.3 x 3.8 x 1.8 cm for a volume of 16.0 mL Left Ovary: 3.2 x 2.2 x 2.7 cm for a volume of 8.6 mL [facility]ade Maker notes: Limited due to overlying bowel 1. Uterus: Anteverted and otherwise wnl 2. Endometrium: wnl 3. Right Ovary: Numerous small, peripherally oriented follicles are present. 4. Left Ovary: wnl as best seen 5. Bilateral Adnexa: Obscured by overlying bowel gas 6. Posterior cul-de-sac: Mild pelvic free fluid within the cul-de-sac. IMPRESSION: 1. Numerous small, peripherally oriented follicles in the right ovary. Query possibility of polycysti c ovary. 2. Mild pelvic free fluid likely physiologic.
== END | disposition home or self-care (01) ==
LOC: RADUSWWP 15:59
PROVIDERS: ATTEND Obstetrics & Gynecology
DX: N93.9 Abnormal uterine and vaginal bleeding, unspecified (principal)
CPT/HCPCS: 76830; 76856